=== PATIENT | female | born 1935 | race Caucasian/White ===

== ENCOUNTER 2018-09-10 14:52 | Observation (INO) ==
[2018-09-10] MEDS ORDERED: NS 1,000 ML IV SCH (17:30)
[2018-09-10] MEDS ORDERED: ZOFRAN IV PRN (17:30)
[2018-09-10] MEDS ORDERED: TYLENOL PO PRN ×2 (17:30→17:31)
[2018-09-10 18:06] LABS: BILIRUBIN URINE NEGATIVE (NEGATIVE); BLOOD URINE NEGATIVE (NEGATIVE); CLARITY CLEAR (CLEAR); COLOR YELLOW; GLUCOSE URINE NEGATIVE (NEGATIVE); KETONE URINE TRACE mg/dL (NEGATIVE); LEUKOCYTES URINE 1+ (NEGATIVE); NITRITE URINE NEGATIVE (NEGATIVE); PROTEIN URINE NEGATIVE (NEGATIVE); SP GRAVITY URINE 1.015; UROBILINOGEN URINE NORMAL
[2018-09-10 18:10] LABS: URINE SOURCE CLEAN CATCH
[2018-09-10 18:12] LABS: URINE BACTERIA 2+ /HFP; URINE EPITHELIAL CELLS >10 /HPF (<10); URINE RBC <10 /HPF (<10); URINE WBC 20-40 /HPF (<10)
[2018-09-10 18:13] LABS: URINE CAST NONE SEEN /LPF; URINE CRYSTAL NONE SEEN /HPF; URINE YEAST NONE SEEN /HPF
--- NOTE | 2018-09-10 19:02 | HISTORY AND PHYSICAL ---
CHIEF COMPLAINT: Bradycardia, syncope. HISTORY OF PRESENT ILLNESS: Patient is a 83-year-old female who has a known history of atrial fibrillation and takes digoxin as well as Toprol at home. Unfortunately, over the last few days, the family has noted that her heart rate has been low at times in the 40s. She has had episodes where she has fallen. Thankfully, she has had no injury from her syncope. The patient herself denies chest pains or palpitations, but unfortunately, her dementia creates a difficulty with history. SOCIAL HISTORY: Patient is . She lives at home, currently in assisted living. She has family that is very attentive. PAST MEDICAL HISTORY: Dementia, atrial fibrillation, high cholesterol, hypothyroidism. MEDICATIONS: Digoxin, Toprol Synthroid, she takes blood pressure medication, and I believe Aricept. ALLERGIES: No known drug allergies. REVIEW OF SYSTEMS: Essentially unobtainable from Ms. Rojas due to her dementia. However, the family notes as above that she has had episodes over the past few days where she has become lightheaded. She has been falling. Thankfully, there has been no injury. They have checked her heart rate, and it has been as low as 40. She has assistance taking her medication, so it is unlikely that she has taken too much medication. They deny any known fevers or chills. Denied any cough, congestion, or other upper respiratory type symptoms. Denied any GI or issues. PHYSICAL EXAMINATION: VITAL SIGNS: Reviewed. Heart rate currently 50. Blood pressure stable. She is afebrile. GENERAL: She is awake, alert. She is very pleasant, although confused and does not answer questions appropriately. She is disoriented to person, place, and time. HEENT: Normocephalic. NECK: Supple. CARDIOVASCULAR: Bradycardia. CHEST: Clear, nonlabored. No wheezing. ABDOMEN: Soft, nondistended. EXTREMITIES: Moves all extremities. No edema. NEUROLOGIC: No focal changes. SKIN: Warm, dry, no rashes. ASSESSMENT: 1. Bradycardia. 2. Syncope. 3. History of atrial fibrillation, currently with bradycardia. 4. Dementia. 5. Hypertension. 6. Others. PLAN: We will admit patient to the hospital. Check labs. Check an echocardiogram. We will hold her Toprol and probably her digoxin and will follow. cc: Sheldon Tomas MD
[2018-09-10] MEDS: ARICEPT PO SCH (20:59)
[2018-09-10] MEDS: ZOCOR PO SCH (21:00)
[2018-09-10] MEDS: CELEXA PO SCH (21:00)
[2018-09-10] MEDS: DESYREL PO SCH (21:00)
[2018-09-11] MEDS: SYNTHROID PO SCH (06:23)
[2018-09-11 06:33] LABS: ALBUMIN 3.5 g/dL (3.5-5.0); CALCIUM 8.8 mg/dL (8.8-10.2); CREATININE 1.6 mg/dL (0.5-0.9); MAGNESIUM 2.1 mg/dL (1.5-2.7); POTASSIUM 4.3 mmol/L (3.5-5.1); TOTAL BILIRUBIN 0.7 mg/dL (0.20-1.00); TOTAL PROTEIN 6.2 g/dL (6.3-8.3)
[2018-09-11 07:28] LABS: HEMATOCRIT 38.3 % (37.0-47.0); HEMOGLOBIN 12.5 g/dL (12.0-16.0); MCH 31.1 PG (27-31); MCHC 32.6 g/dL (33-37); MCV 95.3 FL (81-99); MPV 11.6 FL (7.4-10.4); RBC 4.02 XMIL (4.2-5.4); RDW 14.3 % (11.5-14.5); WBC 10.35 X1000 (4.8-10.8)
[2018-09-11] MEDS ORDERED: NS 1,000 ML IV SCH (08:45)
[2018-09-11] MEDS: FERGON PO SCH (08:56)
[2018-09-11] MEDS: THERA M PLUS PO SCH (08:56)
[2018-09-11] MEDS: ASPIRIN EC PO SCH (08:56)
[2018-09-11] MEDS ORDERED: LANOXIN PO SCH (09:00)
[2018-09-11] MEDS ORDERED: PRINIVIL PO SCH (09:00)
[2018-09-11] MEDS ORDERED: HALDOL IM PRN (18:23)
[2018-09-11] MEDS ORDERED: BENADRYL IM PRN (18:24)
[2018-09-11] MEDS: DESYREL PO SCH (19:42)
[2018-09-11] MEDS: CELEXA PO SCH (19:42)
[2018-09-11] MEDS: ARICEPT PO SCH (19:43)
[2018-09-11] MEDS: ZOCOR PO SCH (19:43)
--- NOTE | 2018-09-11 23:43 | PROGRESS NOTE ---
DATE: 09/11/2018 SUBJECTIVE: Patient still continues somewhat disoriented but stable. PHYSICAL EXAMINATION: Vital Signs: Reviewed. Temperature 97 degrees, pulse 48 to 60, respiratory 20, BP 152/48. General: Patient is in no current respiratory distress. Very pleasant to talk with. She is confused, disoriented, but this is her baseline. HEENT: Normocephalic. Neck: Supple. Cardiovascular: Regular rate. Chest: Clear. Abdomen: Soft. Extremities: Moves all extremities. Neurologic: No changes. ASSESSMENT: 1. Bradycardia. Currently she is in sinus rhythm at approximately 60, but has had several episodes overnight where she is still in the 40s despite holding the Toprol. We will, therefore, hold her digoxin as well. 2. Syncope. 3. History of atrial fibrillation. 4. Dementia. PLAN: We will continue patient in the hospital. Continue physical therapy. Continue to hold her rate-controlling medications. cc: Sheldon Tomas MD
[2018-09-12] MEDS: ARICEPT PO SCH (00:18)
[2018-09-12] MEDS: CELEXA PO SCH (00:18)
[2018-09-12] MEDS: DESYREL PO SCH (00:18)
[2018-09-12] MEDS: ZOCOR PO SCH (00:19)
[2018-09-12] MEDS: SYNTHROID PO SCH (06:13)
[2018-09-12 07:11] LABS: HEMATOCRIT 37.2 % (37.0-47.0); HEMOGLOBIN 11.9 g/dL (12.0-16.0); MCH 30.4 PG (27-31); MCV 95.1 FL (81-99); MPV 11.9 FL (7.4-10.4); RBC 3.91 XMIL (4.2-5.4); RDW 14.2 % (11.5-14.5); WBC 10.37 X1000 (4.8-10.8)
[2018-09-12 07:26] LABS: ALBUMIN 3.6 g/dL (3.5-5.0); CALCIUM 8.5 mg/dL (8.8-10.2); CREATININE 1.6 mg/dL (0.5-0.9); TOTAL BILIRUBIN 0.6 mg/dL (0.20-1.00); TOTAL PROTEIN 6.2 g/dL (6.3-8.3)
[2018-09-12] MEDS: FERGON PO SCH (09:48)
[2018-09-12] MEDS: THERA M PLUS PO SCH (09:48)
[2018-09-12] MEDS: ASPIRIN EC PO SCH (09:48)
--- NOTE | 2018-09-12 10:41 | Diag Imaging Result Doc PS360 ---
CHEST-PORTABLE - 09/12/2018 INDICATION: rehab placement COMPARISON: 11/05/2016 FINDINGS: Stable mild right hemidiaphragm elevation. The lungs are clear. Heart size is normal. No pneumothorax or pleural effusion. IMPRESSION: Negative exam. Electronically signed by Thanh Gant 09/12/2018 10:38 AM
--- NOTE | 2018-09-12 11:36 | PROGRESS NOTE ---
DATE: 09/12/2018 SUBJECTIVE: Patient is calm this morning; however, she has had episodes where she has been wandering. She is easily confused disoriented. PHYSICAL EXAMINATION: Vital Signs: Reviewed. Temperature 97.5 degrees, pulse 53, respiratory rate 16, BP 175/53. General: Patient is awake. She is pleasant. She is calm. She is in no distress. HEENT: Normocephalic. Neck: Supple. Cardiovascular: Regular rate. Chest: Clear. Abdomen: Soft, nondistended. Extremities: Moves all extremities. ASSESSMENT: 1. Bradycardia. Heart rate has continued to be in the low 50s despite holding Toprol and digoxin. Therefore, we will continue to hold them. 2. Atrial fibrillation, currently in sinus. 3. Alzheimer-type dementia. 4. Hypertension. Blood pressures have elevated some, as to be expected after stopping Toprol; therefore, we will increase her lisinopril from 5 to 10. 5. Acute on chronic renal failure. Creatinine is stable at 1.6. We had attempted to give patient IV fluids she did appear slightly dehydrated; however, she continued to pull out her IV and it has become more dangerous to attempt to keep an IV in. We will continue to encourage oral rehydration. PLAN: We will continue patient in the hospital. Continue physical therapy. Follow her blood pressures, heart rates, and will follow. cc: Sheldon Tomas MD
[2018-09-12 13:02] VITALS: BP 158/43
--- NOTE | 2018-09-12 15:24 | DISCHARGE SUMMARY ---
ADMISSION DATE: 09/10/2018 DISCHARGE DATE: 09/13/2018 DISCHARGE DIAGNOSIS: 1. Symptomatic bradycardia, improved after stopping Toprol and digoxin. 2. Syncope appears resolved. 3. Adult failure to thrive with generalized weakness. 4. Alzheimer type dementia. 5. Hypertension. 6. History of atrial fibrillation. 7. High cholesterol. 8. Hypothyroidism. CONSULTATIONS: None. PROCEDURE: None. BRIEF HOSPITAL COURSE: The patient is a 83-year-old female who presented to the office and subsequently admitted the hospital secondary to syncopal episodes at home. This was determined to be secondary to her significant bradycardia as her heart rates were in the low 40s. Unfortunately, given her dementia she is unable to delineate symptoms. We admitted her to the hospital, placed her on telemetry. Her heart rate remained stable. We held her Toprol and digoxin. Her heart rates did increase into the low 50s but was still bradycardic. Blood pressure is elevated slightly so we increased her lisinopril from 5 to 10. She did have some acute renal failure but this is likely chronic as it has not changed in the hospital. Her dementia remains stable. DISPOSITION: Patient will be discharged to rehab due to physical deconditioning and syncope. Hopefully she will continue to improve physically. Unfortunately, doubt but her memory issues do improve. We will continue her lisinopril at 10 mg. We will continue to hold Toprol and digoxin. We will continue her cholesterol and thyroid medication. TIME SPENT: Greater than 30 minutes was spent in total care. cc: Sheldon Tomas MD
--- NOTE | 2018-09-12 15:44 | ECHO REPORT ---
ORDER DATE: 09/11/2018 INTERPRETING PHYSICIAN: Jatinder Sharpe MD PROCEDURE: 2D echocardiogram. ECHOCARDIOGRAPHIC MEASUREMENTS: 1. Interventricular septum 1.3 cm. 2. Left ventricular posterior wall 1.3 cm. 3. Diastolic diameter 4.6 cm. 4. Left atrium 3.9 cm. 5. Aorta 2.7 cm. SUMMARY OF THE 2-DIMENSIONAL IMAGIN. Aortic valve leaflets were trileaflet. 2. Mitral valve leaflets mildly thickened with moderate mitral annular calcification. 3. Tricuspid valve was normal. 4. Pulmonic valve not well visualized. 5. There is left atrial enlargement. 6. Mild mitral regurgitation. 7. Peak velocity across the aortic valve less than 2 m/sec. 8. There is no aortic stenosis or regurgitation. 9. Mild tricuspid regurgitation. 10. Peak velocity across the tricuspid valve was 2.8 m/sec. 11. Pulmonary artery systolic pressure of 43 mmHg. 12. Normal left ventricular cavity size. 13. Mild left ventricular hypertrophy. 14. Estimated ejection fraction of 60%. 15. There is diastolic dysfunction. 16. There is anterior and posterior echo-free space which is granular. This is likely to represent pericardial fat pad, cannot rule out effusion. 17. There is no evidence of tamponade. 18. There is no obvious intracardiac mass or thrombus seen. cc: MD Sheldon Mckeon MD
--- NOTE | 2018-09-12 15:52 | PROGRESS NOTE ---
DATE: 09/12/2018 SUBJECTIVE: Patient has no new complaints. She is lying quietly in the bed. PHYSICAL: Vital Signs: Reviewed. Temperature 97.6 degrees, pulse 55 to 61, respiratory 20, BP 175/53. General: Patient is very pleasant. She is in no distress. The family is sitting in the room talking to her currently. HEENT: Normocephalic. Neck: Supple. CV: Currently regular rate and rhythm. Chest: Clear, nonlabored. Abdomen: Soft, nondistended. Extremities: Moves all extremities. Neuro: No focal changes from previous exams. ASSESSMENT: 1. Symptomatic bradycardia improving with the holding of her Toprol and digoxin. 2. Atrial fibrillation currently sinus rhythm and rate controlled. 3. Alzheimer type dementia. 4. Syncope secondary to bradycardia. 5. Adult failure to thrive. Patient continues to have some generalized weakness. We will continue patient in the hospital, continue physical therapy. Expect that she will need rehab on discharge. cc: Sheldon Tomas MD
[2018-09-13] MEDS ORDERED: PRINIVIL PO SCH (09:00)
== END 2018-09-12 16:40 ==
LOC: INTOOBSV 14:52 → P.DIRADM 14:52 → P.MEDSURG 15:07
PROVIDERS: ADMIT Family Medicine; ATTEND Family Medicine
CPT/HCPCS: 71010; 71045; 80053; 80162; 81001; 82948; 83735; 84443; 85027; 87088; 93306; 97163; A9270; J1200; J1630; J7030; XXXXX